=== PATIENT | male | born 1960 | race Caucasian/White ===

== ENCOUNTER 2023-08-09 07:55 | Day surgery (SDC) | payer BC ==
[2023-08-09] MEDS: Polymyxin B/Trimethoprim 10 ML Bottle EYELF SCH ×4 (07:53→09:22)
[2023-08-09] MEDS: Brimonidine 0.2% Ophth Soln 5 ML Bottle EYELF SCH ×4 (07:58→09:21)
[2023-08-09] MEDS: Phenylephrine 2.5% Ophth Soln 2 ML Bot EYELF SCH ×6 (08:05→09:03)
[2023-08-09] MEDS: Tropicamide 1% Ophth Soln 3 ML Bottle EYELF SCH ×4 (08:09→08:47)
[2023-08-09] MEDS: Tetracaine HCl/PF 0.5% 4 ML Bottle EYEBOTH SCH ×5 (08:51→09:03)
[2023-08-09] MEDS: Pilocarpine 4% Ophth Soln 15 ML Bot EYELF SCH ×2 (08:51→09:21)
[2023-08-09] MEDS: Lidocaine 1% PF 2 ML SDV INJECT SCH ×2 (08:51→09:09)
[2023-08-09] MEDS: Cefuroxime 10 MG/ML SYRINGE EYELF SCH ×2 (08:51→09:09)
== END 2023-08-09 09:30 ==
LOC: JD.SDS 07:55
PROVIDERS: ATTEND Ophthalmology
DX: H25.813 Combined forms of age-related cataract, bilateral (principal); F41.9 Anxiety disorder, unspecified; M19.90 Unspecified osteoarthritis, unspecified site; C85.90 Non-Hodgkin lymphoma, unspecified, unspecified site; E78.00 Pure hypercholesterolemia, unspecified; K75.9 Inflammatory liver disease, unspecified; Z87.891 Personal history of nicotine dependence; Z94.4 Liver transplant status; Z79.899 Other long term (current) drug therapy
CPT/HCPCS: 66984; A9270; J0697; J3490

== ENCOUNTER 2025-02-02 06:45 | Day surgery (SDC) | payer BC ==
[~2025-02-02 06:45] MED LIST: Sodium Chloride 0.9% 10 ML Syringe FLUSH PRN; Sodium Chloride 0.9% 10 ML Syringe FLUSH SCH
[2025-02-02] MEDS: Lactated Ringers 1,000 ML IV SCH (06:50)
[2025-02-02 06:58] LABS: BASOPHILS PERCENT AUTO 0.4 % (0.0-1.0); EOSINOPHILS ABSOLUTE AUTO 0.1 K/mm3 (0.0-0.4); HEMATOCRIT 40.6 % (42.0-52.0); IMMATURE GRAN ABSOLUTE AUTO 0.01 K/mm3 (0.00-0.05); IMMATURE GRAN PERCENT AUTO 0.2 % (0.0-0.4); LYMPHOCYTES ABSOLUTE AUTO 0.8 K/mm3 (1.0-4.8); LYMPHOCYTES PERCENT AUTO 17.9 % (24.0-44.0); MEAN CORPUSCULAR HEMOGLOBIN 29.5 pg (28.0-32.0); MEAN CORPUSCULAR HGB CONC 34.5 g/dl (32.0-36.0); MEAN CORPUSCULAR VOLUME 85.5 fl (83.0-99.0); MEAN PLATELET VOLUME 10.1 fl (9.4-12.4); MONOCYTES ABSOLUTE AUTO 0.3 K/mm3 (0.0-0.8); MONOCYTES PERCENT AUTO 6.7 % (0.0-8.0); NEUTROPHILS ABSOLUTE AUTO 3.3 K/mm3 (1.8-7.7); NEUTROPHILS PERCENT AUTO 72.8 % (41.0-71.0); PLATELET COUNT,PLT 103 K/mm3 (150-400); RED BLOOD CELL COUNT 4.75 M/mm3 (4.52-5.90); WHITE BLOOD CELL COUNT,WBC 4.48 K/mm3 (3.9-11.3)
[2025-02-02] MEDS: oxyCODONE ER 10 MG TAB.ER PO ONE (07:14)
[2025-02-02] MEDS: Pregabalin 25 MG Cap PO ONE (07:14)
[2025-02-02] MEDS: Acetaminophen 325 MG Tab PO ONE (07:14)
[2025-02-02 07:27] LABS: PROTHROMBIN TIME 9.8 SECONDS (9.7-12.0)
[2025-02-02 07:28] LABS: PTT,PARTIAL THROMBOPLSTIN TIME 27.3 SECONDS (21.7-31.4)
[2025-02-02] MEDS ORDERED: dexmedeTOMIDine HCl 200 MCG/2 ML SDV ONE (07:37)
[2025-02-02] MEDS ORDERED: ceFAZolin 2 GM Vial ONE (07:37)
[2025-02-02] MEDS ORDERED: Midazolam 1 MG/ML 2 ML SDV ONE (07:37)
[2025-02-02] MEDS ORDERED: fentaNYL 250 MCG/5 ML SDV ONE (07:37)
[2025-02-02] MEDS ORDERED: Propofol 200 MG/20 ML SDV ONE ×2 (07:37→08:05)
[2025-02-02] MEDS ORDERED: Lidocaine 1% 4 ML ONE (07:37)
[2025-02-02] MEDS ORDERED: Dexamethasone 4 MG/ML 5 ML MDV ONE (07:38)
[2025-02-02] MEDS ORDERED: Ondansetron 4 MG/2 ML SDV ONE (07:38)
[2025-02-02] MEDS ORDERED: Ketorolac 30 MG/ML SDV ONE (07:38)
[2025-02-02 08:05] LABS: INR < 0.93
[2025-02-02] MEDS ORDERED: Ketamine 200 MG/20 ML MDV ONE (08:08)
[2025-02-02] MEDS ORDERED: HYDROmorphone 0.5 MG/0.5 ML Syringe ONE ×2 (08:08→08:44)
[2025-02-02] MEDS ORDERED: Ropivacaine 0.5% 5 MG/ML 30 ML SDV ONE (08:17)
[2025-02-02] MEDS ORDERED: fentaNYL 100 MCG/2 ML SDV IVPUSH PRN (08:22)
[2025-02-02] MEDS ORDERED: Ondansetron 4 MG/2 ML SDV IVPUSH PRN (08:22)
[2025-02-02] MEDS ORDERED: Lactated Ringers 1,000 ML ONE (08:31)
[2025-02-02] MEDS ORDERED: ePHEDrine 50 MG/ML SDV ONE (08:33)
[2025-02-02] MEDS: Morphine 8 MG, EPINEPHrine 0.3 MG, Cefuroxime 750 MG, Ketorolac 30 MG, Sodium Chloride ... PRN (09:23)
[2025-02-02] MEDS: VANCOmycin 1 GM SDV ONE (09:29)
[2025-02-02] MEDS: Tranexamic Acid 1,000 MG/10 ML Vial ONE (09:29)
[2025-02-02] MEDS: Triamcinolone Acetonide 40 MG/ML 1 ML SDV ONE (09:46)
[2025-02-02] MEDS: Bupivacaine 0.25% 10 ML SDV ONE (09:46)
[2025-02-02] MEDS: HYDROmorphone 0.5 MG/0.5 ML Syringe IVPUSH PRN (10:17)
[2025-02-02] MEDS: Acetaminophen/HYDROcodone 325-5 MG Tab PO PRN (11:51)
== END 2025-02-02 13:20 | disposition home or self-care (01) ==
LOC: JD.SDS 06:45
PROVIDERS: ATTEND Orthopaedic Surgery
DX: M17.0 Bilateral primary osteoarthritis of knee (principal); D69.6 Thrombocytopenia, unspecified; Z86.16 Personal history of COVID-19; Z79.899 Other long term (current) drug therapy; Z87.891 Personal history of nicotine dependence
CPT/HCPCS: 0055T; 20610; 27447; 36415; 64447; 73560; 85025; 85610; 85730; 97116; 97161; A9270; C1713; C1776; J0171; J0665; J0690; J0697; J1100; J1885; J2003; J2250; J2272; J2405; J2704; J2795; J3010; J3301; J3490; J7120